=== PATIENT | male | born 1970 | race Caucasian/White ===

== ENCOUNTER 2022-12-10 08:22 | Day surgery (SDC) | payer BC ==
[2022-12-10] MEDS: Lactated Ringers 1,000 ML IV SCH (08:49)
[2022-12-10] MEDS ORDERED: Propofol 200 MG/20 ML SDV ONE ×4 (09:16→10:31)
[2022-12-10] MEDS ORDERED: fentaNYL 100 MCG/2 ML SDV ONE (09:16)
== END 2022-12-10 12:14 | disposition home or self-care (01) ==
LOC: VM.SDS 08:22 → MERGE 09:20 → VM.SDS 12:14
PROVIDERS: ATTEND Family Medicine
DX: Z12.11 Encounter for screening for malignant neoplasm of colon (principal); D12.6 Benign neoplasm of colon, unspecified; I10 Essential (primary) hypertension; E78.5 Hyperlipidemia, unspecified; E66.9 Obesity, unspecified; R73.01 Impaired fasting glucose; Z98.890 Other specified postprocedural states; Z79.899 Other long term (current) drug therapy; Z68.36 Body mass index [BMI] 36.0-36.9, adult
CPT/HCPCS: 00812; J2704; J3010; J7120